=== PATIENT | male | born 1930 | race Caucasian/White ===

== ENCOUNTER → 2017-12-03 | Emergency (ER) | payer OTHER ==
[~2017-12-03] VITALS: Ht 167.6 cm; Wt 59.4 kg
[~2017-12-03] MED LIST: HEMATRON P.O.1 UDTAB PO; NEURIN; OMEGA-31000 MG PO; [UNRECOGNIZED DRUG - OTHER] PO
== END | disposition home or self-care (01) ==
LOC: ER 12:29
DX: J11.1 Influenza due to unidentified influenza virus with other respiratory manifestations (principal)

== ENCOUNTER 2018-02-14 13:41 | Outpatient (CLI) | payer OTHER | END 2018-02-14 13:55 | disposition home or self-care (01) | LOC: TOM 13:41 | DX: R10.84 Generalized abdominal pain (principal); K57.32 Diverticulitis of large intestine without perforation or abscess without bleeding; E78.4 Other hyperlipidemia; E03.8 Other specified hypothyroidism ==

== ENCOUNTER 2018-02-18 09:53 | Outpatient (CLI) | payer OTHER ==
[2018-02-21] MEDS ORDERED: PRILOSEC10 MG (10:07)
[2018-02-21] MEDS ORDERED: ZANTAC150 M3 (10:08)
[2018-02-21] MEDS ORDERED: LEVSIN0.125 MG (10:08)
[2018-02-21] MEDS ORDERED: OMEGA 3 FISH O1 EACH (10:08)
== END 2018-02-18 12:01 | disposition home or self-care (01) ==
LOC: MRI 09:53
DX: K85.90 Acute pancreatitis without necrosis or infection, unspecified (principal); Z87.19 Personal history of other diseases of the digestive system; R79.89 Other specified abnormal findings of blood chemistry; R74.8 Abnormal levels of other serum enzymes
CPT/HCPCS: 74182

== ENCOUNTER 2018-02-18 12:11 | Outpatient (CLI) | payer OTHER ==
[2018-02-21] MEDS ORDERED: PRILOSEC10 MG (10:07)
[2018-02-21] MEDS ORDERED: OMEGA 3 FISH O1 EACH (10:08)
[2018-02-21] MEDS ORDERED: LEVSIN0.125 MG (10:08)
[2018-02-21] MEDS ORDERED: ZANTAC150 M3 (10:08)
== END 2018-02-18 13:31 | disposition home or self-care (01) ==
LOC: LAB 12:11
DX: R74.8 Abnormal levels of other serum enzymes (principal); R79.89 Other specified abnormal findings of blood chemistry; Z87.19 Personal history of other diseases of the digestive system

== ENCOUNTER 2018-02-25 08:21 | Outpatient (CLI) | payer OTHER ==
[~2018-02-25 08:21] MED LIST changes: +LEVSIN0.125 MG; +OMEGA 3 FISH O1 EACH; +PRILOSEC10 MG; +ZANTAC150 M3
== END 2018-02-25 08:33 | disposition home or self-care (01) ==
LOC: LAB 08:21
DX: D35.1 Benign neoplasm of parathyroid gland (principal); E83.52 Hypercalcemia; N28.89 Other specified disorders of kidney and ureter; Z51.81 Encounter for therapeutic drug level monitoring

== ENCOUNTER 2018-02-25 13:02 | Outpatient (CLI) | payer OTHER | END 2018-02-25 13:14 | disposition home or self-care (01) | LOC: TOM 13:02 | DX: N28.89 Other specified disorders of kidney and ureter (principal) | CPT/HCPCS: 74178; Q9965 ==

== ENCOUNTER → 2018-04-15 | Outpatient (CLI) | payer OTHER | END | disposition home or self-care (01) | LOC: RAD 10:00 → MAMO-SONO 10:15 | DX: N21.0 Calculus in bladder (principal) ==